=== PATIENT | female | born 1980 | race Hispanic/Latino ===

== ENCOUNTER 2017-10-05 00:26 | Emergency (ER) | payer SELFPAY ==
[2017-10-05] MEDS ORDERED: IPRATROPIUM/ALBUTEROL SULFATE 3 ML SOLUTION IH ONE (00:42)
[2017-10-05] MEDS ORDERED: BENZONATATE 100 MG CAPSULE PO ONE (01:04)
== END 2017-10-05 01:13 | disposition home or self-care (01) ==
LOC: EDH 00:26
DX: J06.9 Acute upper respiratory infection, unspecified (principal); M54.5 Low back pain; Z88.0 Allergy status to penicillin; Z98.51 Tubal ligation status; Z79.899 Other long term (current) drug therapy; Z72.0 Tobacco use
CPT/HCPCS: 71010; 94640

== ENCOUNTER 2017-10-24 17:00 | Emergency (ER) | payer SELFPAY ==
[2017-10-24 17:23] LABS: APPEARANCE,URINE Cloudy (CLEAR); BILIRUBIN,URINE Negative (NEGATIVE); COLOR,URINE Yellow (YELLOW); GLUCOSE, URINE (UA) Negative (NEGATIVE); KETONES,URINE Negative (NEGATIVE); LEUKOCYTE ESTERASE ,URINE Moderate (NEGATIVE); NITRATE,URINE Positive (NEGATIVE); OCCULT BLOOD,URINE Nonhemolyzed Trace (NEGATIVE); PROTEIN,URINE Negative (NEGATIVE); UROBILINOGEN,URINE 0.2 mg/dL (0.2-1.0)
[2017-10-24 17:24] LABS: HCG,QUAL RESULT NEGATIVE (NEGATIVE)
[2017-10-24 17:31] LABS: BACTERIA,URINE Few /HPF (None Seen); RBC,URINE 0-1 /HPF (0-1); WBC,URINE 26-50 /HPF (0-1)
[2017-10-24] MEDS ORDERED: PHENAZOPYRIDINE HCL 200 MG TABLET ONE (17:38)
[2017-10-24] MEDS ORDERED: KETOROLAC TROMETHAMINE 30MG/ML ONE (17:46)
== END 2017-10-24 18:36 | disposition home or self-care (01) ==
LOC: EDH 17:00
DX: N39.0 Urinary tract infection, site not specified (principal); Z88.0 Allergy status to penicillin
CPT/HCPCS: 81001; 81025; 87088; 87186; 96372; 99284; J1885

== ENCOUNTER 2018-01-15 15:31 | Emergency (ER) | payer OTHER | END 2018-01-15 16:42 | disposition home or self-care (01) | LOC: EDH 15:31 | DX: M54.2 Cervicalgia (principal); Z88.0 Allergy status to penicillin; Z98.51 Tubal ligation status; Z72.0 Tobacco use; Z98.890 Other specified postprocedural states; V49.49XA Driver injured in collision with other motor vehicles in traffic accident, initial encounter; Y93.89 Activity, other specified; Y92.89 Other specified places as the place of occurrence of the external cause; Y99.8 Other external cause status | CPT/HCPCS: 72040; 81025 ==

== ENCOUNTER 2018-07-16 04:40 | Emergency (ER) | payer OTHER ==
[2018-07-16] MEDS ORDERED: KETOROLAC TROMETHAMINE 30MG/ML ONE (04:48)
[2018-07-16 04:57] LABS: BASOPHILS % (AUTO) 0.8 % (0.0-5.0); EOSINOPHILS % (AUTO) 1.8 % (0.0-8.0); HEMATOCRIT 36.4 % (36-48); LYMPHOCYTES % (AUTO) 23.5 % (21.0-51.0); MEAN CORPUSCULAR HEMOGLOBIN 28.7 pg (27.0-33.0); MEAN CORPUSCULAR HGB CONC 33.2 g/dL (32.0-36.0); MEAN CORPUSCULAR VOLUME 86.5 fL (79-99); MONOCYTES % (AUTO) 6.2 % (3.0-13.0); NEUTROPHILS % (AUTO) 67.7 % (40.0-77.0); PLATELET COUNT (AUTO) 340 K/uL (130-400); RED BLOOD CELL COUNT(AUTO) 4.21 MIL/uL (4.00-5.50); RED CELL DISTRIBUTION WIDTH 15.5 % (11.0-15.5); WHITE BLOOD COUNT (AUTO) 6.9 K/uL (4.8-10.8)
[2018-07-16 05:08] LABS: CREATININE 0.8 mg/dL (0.5-1.5)
[2018-07-16 05:12] LABS: APPEARANCE,URINE Clear (CLEAR); BILIRUBIN,URINE Negative (NEGATIVE); COLOR,URINE Yellow (YELLOW); GLUCOSE, URINE (UA) Negative (NEGATIVE); KETONES,URINE Negative (NEGATIVE); LEUKOCYTE ESTERASE ,URINE Negative (NEGATIVE); NITRATE,URINE Negative (NEGATIVE); OCCULT BLOOD,URINE Negative (NEGATIVE); PH,URINE 6.5 (5.0-8.0); PROTEIN,URINE Negative (NEGATIVE)
[2018-07-16 05:14] LABS: HCG,QUAL RESULT NEGATIVE (NEGATIVE)
[2018-07-16 05:15] LABS: POTASSIUM 2.9 mmol/L (3.5-5.1)
[2018-07-16] MEDS ORDERED: POTASSIUM BICARB/CIT AC 25 MEQ TABLET.EFF ONE (05:33)
[2018-07-16] MEDS ORDERED: ORPHENADRINE CITRATE 30 MG/ML ML ONE (05:33)
[2018-07-16] MEDS ORDERED: TETANUS/DIPHTHERIA TOXOID [ADULT] 0.5 ML VIAL IM ONE (05:46)
[2018-07-16] MEDS ORDERED: HYDROCODONE/ACETAMINOPHEN 5/325 MG TAB ONE (06:13)
== END 2018-07-16 07:46 | disposition home or self-care (01) ==
LOC: EDH 04:40
DX: S70.12XA Contusion of left thigh, initial encounter (principal); S70.02XA Contusion of left hip, initial encounter; Z88.0 Allergy status to penicillin; Z98.51 Tubal ligation status; V09.20XA Pedestrian injured in traffic accident involving unspecified motor vehicles, initial encounter; Y93.89 Activity, other specified; Y92.89 Other specified places as the place of occurrence of the external cause; Y99.8 Other external cause status
CPT/HCPCS: 36415; 72170; 80048; 81003; 81025; 85025; 90471; 90714; 96374; 96375; 99285; J1885; J2360

== ENCOUNTER → 2020-12-28 | Outpatient (CLI) | payer OTHER | END | disposition home or self-care (01) | LOC: OIH 15:19 | PROVIDERS: ATTEND Internal Medicine | DX: M54.5 Low back pain (principal); R53.1 Weakness | CPT/HCPCS: 72100; 73502 ==

== ENCOUNTER 2022-02-01 22:35 | Emergency (ER) | payer OTHER ==
[~2022-02-01] VITALS: Ht 157.5 cm; Wt 112.9 kg
[2022-02-01 22:53] VITALS: BP 148/83
[2022-02-01] MEDS ORDERED: CYCLOBENZAPRINE HCL 10 MG TABLET ONE (22:59)
[2022-02-01] MEDS ORDERED: KETOROLAC 60 MG VIAL (30MG/ML) IM ONE ×2 (22:59→23:00)
[2022-02-01] MEDS ORDERED: CYCL10TA16 PO (23:00)
[2022-02-01] MEDS ORDERED: CYCLOBENZAPRINE HCL 10 MG TABLET PO ONE (23:00)
[2022-02-01] MEDS ORDERED: NAPR-1180 PO (23:00)
== END 2022-02-01 23:12 | disposition home or self-care (01) ==
LOC: EDH 22:35
DX: M54.50 Low back pain, unspecified (principal); R03.0 Elevated blood-pressure reading, without diagnosis of hypertension; E66.9 Obesity, unspecified; Z79.1 Long term (current) use of non-steroidal anti-inflammatories (NSAID); Z90.49 Acquired absence of other specified parts of digestive tract; Z68.42 Body mass index [BMI] 45.0-49.9, adult; X58.XXXA Exposure to other specified factors, initial encounter; Y93.89 Activity, other specified; Y92.89 Other specified places as the place of occurrence of the external cause; Y99.8 Other external cause status
CPT/HCPCS: 96372; 99283; J1885

== ENCOUNTER 2023-01-24 12:22 | Emergency (ER) | payer MEDICAID ==
[~2023-01-24] VITALS: Ht 157.5 cm; Wt 102.1 kg
[~2023-01-24 12:22] MED LIST: CYCL10TA16 PO; NAPR-1180 PO
[2023-01-24] MEDS ORDERED: 0.9% NACL 500ML IV.SOLN 500 ML IV ONE (13:00)
[2023-01-24] MEDS ORDERED: MORPHINE 4 MG SYG IVP ONE (13:00)
[2023-01-24] MEDS ORDERED: ONDANSETRON 4MG INJ IVP ONE (13:00)
[2023-01-24 13:02] LABS: BASOPHILS % (AUTO) 0.5 % (0.0-5.0); EOSINOPHILS % (AUTO) 2.4 % (0.0-8.0); MEAN CORPUSCULAR HEMOGLOBIN 29.7 pg (27.0-33.0); MEAN CORPUSCULAR HGB CONC 32.5 g/dL (32.0-36.0); MEAN CORPUSCULAR VOLUME 91.5 fL (79-99); MONOCYTES % (AUTO) 5.3 % (3.0-13.0); NEUTROPHILS % (AUTO) 67.3 % (40.0-77.0); PLATELET COUNT (AUTO) 433 K/uL (130-400); RED BLOOD CELL COUNT(AUTO) 4.81 MIL/uL (4.00-5.50); RED CELL DISTRIBUTION WIDTH 15.8 % (11.0-15.5); WHITE BLOOD COUNT (AUTO) 8.3 K/uL (4.8-10.8)
[2023-01-24 13:07] LABS: APPEARANCE,URINE CLOUDY (CLEAR); BILIRUBIN,URINE NEGATIVE (NEGATIVE); COLOR,URINE LIGHT-YELLOW (YELLOW); GLUCOSE, URINE (UA) NEGATIVE (NEGATIVE); KETONES,URINE NEGATIVE (NEGATIVE); LEUKOCYTE ESTERASE ,URINE NEGATIVE Leu/uL (NEGATIVE); NITRATE,URINE NEGATIVE (NEGATIVE); OCCULT BLOOD,URINE NEGATIVE (NEGATIVE); PROTEIN,URINE NEGATIVE (NEGATIVE); UROBILINOGEN,URINE 0.2 mg/dL (0.2-1.0)
[2023-01-24 13:12] LABS: CREATININE 0.6 mg/dL (0.5-1.5); POTASSIUM 3.6 mmol/L (3.5-5.1)
[2023-01-24 13:14] LABS: INR 0.93 (0.85-1.15)
[2023-01-24 13:15] LABS: PARTIAL THROMBOPLASTIN TIME 29.3 SEC (26.3-35.5)
[2023-01-24 13:16] LABS: ALBUMIN 3.6 g/dL (3.5-5.0); MUCUS,URINE RARE LPF (None Seen); SQUAMOUS EPITHELIAL CELL,UR MOD /HPF (0-2)
[2023-01-24 15:43] VITALS: BP 167/95
== END 2023-01-24 15:46 | disposition home or self-care (01) ==
LOC: EDH 12:22
DX: G89.29 Other chronic pain (principal); M25.552 Pain in left hip; M19.90 Unspecified osteoarthritis, unspecified site; F41.9 Anxiety disorder, unspecified; Z88.0 Allergy status to penicillin; Z90.49 Acquired absence of other specified parts of digestive tract
CPT/HCPCS: 99285; 96374; 72192; 96361; 96375; 80053; 85025; 85610; 85730; 81001; 81025; 36415; J7040; J2405; J2270

== ENCOUNTER → 2023-05-14 | Outpatient (CLI) | payer OTHER, MEDICARE | END | disposition home or self-care (01) | LOC: RAH 14:58 | PROVIDERS: ATTEND Obstetrics & Gynecology | DX: Z12.31 Encounter for screening mammogram for malignant neoplasm of breast (principal) | CPT/HCPCS: 77067 ==

== ENCOUNTER → 2023-05-16 | Outpatient (CLI) | payer OTHER, MEDICAID | END | disposition home or self-care (01) | LOC: RAH 11:04 | PROVIDERS: ATTEND Internal Medicine | DX: K76.0 Fatty (change of) liver, not elsewhere classified (principal); Z90.49 Acquired absence of other specified parts of digestive tract; M47.815 Spondylosis without myelopathy or radiculopathy, thoracolumbar region; R10.9 Unspecified abdominal pain | CPT/HCPCS: 74176 ==

== ENCOUNTER 2025-09-30 10:01 | Emergency (ER) | payer OTHER, MEDICARE ==
[~2025-09-30] VITALS: Ht 157.5 cm; Wt 117.9 kg
[2025-09-30 10:23] LABS: RAPID GROUP A STREP negative (NEGATIVE)
[2025-09-30 10:28] LABS: SARS-CoV-2, RNA, NAAT NEGATIVE SARS CoV-2 (NEGATIVE)
[2025-09-30 10:35] LABS: INFLUENZA TYPE B Negative For Type B (NEGATIVE)
[2025-09-30 10:37] LABS: NUCLEATED RED BLOOD CELLS 0.0 % (0.0-0.19); PLATELET COUNT (AUTO) 300.0 K/uL (130-400); RED BLOOD CELL COUNT(AUTO) 4.53 MIL/uL (4.00-5.50); RED CELL DISTRIBUTION WIDTH 14.6 % (11.0-15.5); WHITE BLOOD COUNT (AUTO) 6.6 K/uL (4.8-10.8)
--- NOTE | 2025-09-30 10:42 | ERN ---
General Chief Complaint: Cough Stated Complaint: COUGH Time Seen by MD: 10:05 Source: patient History of Present Illness Initial Comments The patient is a 45-year-old female who came to the ER with complaint of cough and shortness of breaths last night. As per the patient, the cough started last night and after with the patient with the pain in her chest. Timing/Duration: 24 hours Severity: moderate Associated Symptoms: cough Allergies: Coded Allergies: penicillin G (Unverified Allergy, Unknown, 01/24/23) Home Meds Active Scripts Cyclobenzaprine HCl (Flexeril) 10 Mg Tab, 10 MG PO BID, #40 TAB Prov:YOANDY HITCHCOCK 02/01/22 Naproxen (Naprosyn) 500 Mg Tablet, 500 MG PO BIDPC, #60 TAB Prov:YOANDY HITCHCOCK 02/01/22 Past Medical History Past Medical History: Other Medical History Other: CHRONIC BACK PAIN Past Surgical History: Hysterectomy, Other Surgical History Other: ABDOMINAL HERNIA REPAIR, BACK SX Family History Family History: Negative Social History Social History: Negative Respiratory: (+) cough Cardiovascular: (+) chest pain Results Laboratory and Microbiology Lab and Micro Result Laboratory Tests Test 09/30/25 10:05 09/30/25 10:22 Influenza Type A Antigen Positive For Type A Influenza Type B Antigen Negative For Type B SARS-CoV-2, RNA, NAAT NEGATIVE SARS CoV-2 Group A Streptococcus Rapid negative (NEGATIVE) White Blood Count 6.6 K/uL (4.8-10.8) Red Blood Count 4.53 MIL/uL (4.00-5.50) Hemoglobin 14.2 g/dL (12.0-16.0) Hematocrit 42.1 % (36-48) Mean Corpuscular Volume 92.9 fL (79-99) Mean Corpuscular Hemoglobin 31.3 pg (27.0-33.0) Mean Corpuscular Hemoglobin Concent 33.7 g/dL (32.0-36.0) Red Cell Distribution Width 14.6 % (11.0-15.5) Platelet Count 300 K/uL (130-400) Mean Platelet Volume 8.5 fL (7.5-10.5) Nucleated Red Blood Cells 0.0 % (0.0-0.19) Sodium Level 137 mmol/L (136-145) Potassium Level 4.5 mmol/L (3.5-5.1) Chloride Level 103 mmol/L (101-111) Carbon Dioxide Level 27 mmol/L (21-32) Blood Urea Nitrogen 6 mg/dL (7-18) L Creatinine 0.8 mg/dL (0.5-1.0) Glomerular Filtration Rate Calc 94 mL/min (>90) Random Glucose 105 mg/dL (70-105) Total Calcium 8.7 mg/dL (8.5-10.1) Troponin I High Sensitivity 7 ng/L (4-50) MDM MDM: Differential diagnosis: Rationale: Tests considered and ordered secondary to shared decision making include: Previous outside records reviewed: Old ER visits. Risk of complication and/or morbidity or mortality of patient management: None Medications-Per medication reconciliation Need for hospitalization: Patient does not meet criteria for hospitalization. Need for emergency major/minor surgery: No There are no social concerns with this patient. Prescription drug management Prescriptions will include symptomatic care Patient's prior external medical records from other ER visits were reviewed by me as indicated. Prior testing and results from previous visits were reviewed. Prior tests were taken into account with medical decision making and resource utilization, independent historian/historians were used to obtain complete medical history. I independently interpreted the test that were performed, results were reviewed by me and considered findings on radiology if ordered. Medical management and examination interpretation discussions were had by me with other qualified healthcare professionals as indicated for the patient's care. ED Course Orders Procedure Category Date Status Time Covid Rna Naat LAB 09/30/25 Complete 10:09 Influenza Type A & B, LAB 09/30/25 Complete Rapid 10:09 Rapid (Group A Strep) LAB 09/30/25 Complete 10:09 Cbc Without LAB 09/30/25 Complete Differential 10:13 Basic Metabolic Panel LAB 09/30/25 Complete 10:13 Chest 1vw RAD 09/30/25 Taken 10:13 Troponin I High LAB 09/30/25 Complete Sensitivity 10:13 Urinalysis Profile LAB 09/30/25 Logged 10:13 12 Lead Ekg Tracing- EKG 09/30/25 Logged Technical 10:43 Vital Signs Date Time Temp Pulse Resp B/P (MAP) Pulse Ox O2 Delivery O2 Flow Rate FiO2 09/30/25 10:03 100.9 90 16 148/93 98 Room Air 0 DX & DISP Disposition: Discharge Departure Impression: Primary Impression: Influenza Condition: Stable Scripts Oseltamivir Phosphate (Tamiflu) 75 Mg Cap 75 MG PO BID for 5 Days, #10 CAP Prov: MARY TYLER MD 09/30/25 Referrals: EDIE COLEMAN MD (PCP) ALANNA ORTEGA MD Sep 30, 2025 10:42 MARY TYLER MD Sep 30, 2025 11:06
[2025-09-30 10:43] LABS: CREATININE 0.8 mg/dL (0.5-1.0); GLOMERULAR FILTR. RATE CALC 94.0 mL/min (>90); GLUCOSE,RANDOM 105.0 mg/dL (70-105); SODIUM SERUM 137.0 mmol/L (136-145); UREA NITROGEN, BLOOD 6.0 mg/dL (7-18)
[2025-09-30 10:56] LABS: INFLUENZA TYPE A Positive For Type A (NEGATIVE)
[2025-09-30] MEDS ORDERED: OSEL75 PO (11:06)
--- NOTE | 2025-09-30 11:07 | HMCIMG ---
EXAM: CR Chest, 1 View. CLINICAL HISTORY: Cough COMPARISON: CR - CHEST 1VW - 10/05/17 00:51 EST FINDINGS: LUNGS: There is no mass, infiltrate, or acute pulmonary abnormality. PLEURAL SPACES: No pleural effusion or pneumothorax. MEDIASTINUM: Cardiac size and mediastinal contours within normal limits. BONES: No acute osseous abnormality. IMPRESSION: No acute cardiopulmonary pathology is evident. /[place]
[2025-09-30 11:36] VITALS: PULSE 88; RESP 24
[2025-09-30 12:02] VITALS: BP 141/89; PULSE 80; RESP 18; TEMP 99; O2SAT 98
--- NOTE | 2025-10-02 11:15 | EKG ---
[facility] Test Date: 2025-09-30 Test Time: 11:18:56 Pat Name: CONCHA CASPER Department: ED Room: Gender: F [place]crater: 07 : 1980 Requested By: ALANNA ORTEGA Order Number: [id number] Reading MD: Gisela Whitlock Measurements Intervals [place] Rate: 96 P: 10 SD: 156 QRS: 8 QRSD: 96 T: -3 QT: 348 QTc: 439 Interpretive Statements Sinus rhythm Probable left ventricular hypertrophy Compared to ECG 12/17/2015 14:35:45 Sinus arrhythmia no longer present Electronically Signed On 10-05-2025 08:49:34 [employer] by Gisela Whitlock Please click the below link to view image of tracing.
== END 2025-09-30 12:17 | disposition home or self-care (01) ==
LOC: EDH 10:01
DX: J11.1 Influenza due to unidentified influenza virus with other respiratory manifestations (principal); G89.29 Other chronic pain; Z88.0 Allergy status to penicillin; Z90.710 Acquired absence of both cervix and uterus; Z98.890 Other specified postprocedural states; Z20.822 Contact with and (suspected) exposure to COVID-19
CPT/HCPCS: 36415; 71045; 80048; 84484; 85027; 87635; 87804; 87880; 93005; 94640; 99285